=== PATIENT | female | born 1990 | race Caucasian/White ===

== ENCOUNTER 2017-08-26 09:07 | Emergency (ER) | payer MEDICAID ==
--- NOTE | 2017-08-26 11:17 | OBHP ---
Datetime: 08/26/2017 10:45 IP Adm Impression: , intrauterine IP Admit Plan: Observation/Evaluation; Discharge home Admit Comment, IP Provider: Patient is a @ 21.3 wks, reports vaginal bleeding yesterday and tod ay. Normal care up to this point, no medical/surgical history, no other complaints like abd ominal pain or dysuria. On exam, brownish discharge noted, no active vaginal bleeding noted. No pooli ng. [id number]. No contractions noted on monitor, no abdominal tenderness, blood type O+. Patient has a ppt with clinic 08/31, encouraged patient to keep appt and return if any additional ob complaints Pelvic Type - PN: Adequate Extremities - PN: Normal Abdomen - PN: Normal Back - PN: Normal Breast - PN: Normal Lungs - PN: Normal Heart - PN: Normal Thyroid - PN: Normal Neurologic - PN: Normal HEENT - PN: Normal General - PN: Normal FHR - Baseline A Provider: 150 EGA AdmitDate IP: 21.3 Vital Signs Provider: Reviewed; Within Normal Limits IP Chief Complaint: Vaginal bleeding Dilatation, Provider: closed Genitourinary Exam: Normal DTRs - PN: Normal
--- NOTE | 2017-08-26 11:32 | OBDCSUM ---
Datetime: 08/26/2017 10:11 Discharged to, Provider: Home Follow up at, Provider: clinic Disch Instr Activity: Normal activity Disch Instr Diet: Regular Discharge Instructions, Provider: Routine instructions given Follow up in weeks, Provider: 1 week Disch Referrals: None Contraception discussed, Prov: Yes Disch Activity Restrictions: No exercising; No lifting Discharge Diagnosis Prov Other: vaginal bleeding
[2017-08-26 17:20] VITALS: BMI 32.8
[2017-08-26 20:45] VITALS: BP 110/70; PULSE 109; O2SAT 100
== END 2017-08-26 11:16 | disposition home or self-care (01) ==
LOC: H.EROB2 09:07 → H.EROB 09:37 → H.EROB2 11:16
DX: O46.92 Antepartum hemorrhage, unspecified, second trimester (principal); Z3A.21 21 weeks gestation of pregnancy